=== PATIENT | female | born 1950 | race Two or more races ===

== ENCOUNTER 2017-10-11 07:49 | Outpatient (CLI) | payer OTHER | END 2017-10-11 07:55 | disposition home or self-care (01) | LOC: TOM 07:49 | DX: K92.1 Melena (principal) ==

== ENCOUNTER 2017-10-18 13:38 | Outpatient (CLI) | payer OTHER | END 2017-10-18 13:52 | disposition home or self-care (01) | LOC: RX STUDY 13:38 | DX: K92.1 Melena (principal) ==

== ENCOUNTER 2022-05-03 09:02 | Outpatient (CLI) | payer OTHER | END 2022-05-03 09:08 | disposition home or self-care (01) | LOC: TOM 09:02 | PROVIDERS: ATTEND Internal Medicine | DX: Z12.11 Encounter for screening for malignant neoplasm of colon (principal); K56.50 Intestinal adhesions [bands], unspecified as to partial versus complete obstruction; I48.0 Paroxysmal atrial fibrillation ==